=== PATIENT | female | born 1975 | race Two or more races ===

== ENCOUNTER 2022-08-30 13:28 | Emergency (ER) | payer OTHER ==
[~2022-08-30] VITALS: Ht 160 cm; Wt 93.0 kg
[2022-08-30] MEDS ORDERED: LOSARTAN-HCTZ1 EAC1 (14:06)
[2022-08-30] MEDS ORDERED: NEURONTIN600 M1 (14:07)
== END 2022-08-30 21:21 | disposition home or self-care (01) ==
LOC: ER 13:28
DX: S93.402A Sprain of unspecified ligament of left ankle, initial encounter (principal); W19.XXXA Unspecified fall, initial encounter; Y93.9 Activity, unspecified; Y92.9 Unspecified place or not applicable; Y99.9 Unspecified external cause status; I10 Essential (primary) hypertension